=== PATIENT | female | born 1975 | race Hispanic/Latino ===

== ENCOUNTER → 2023-04-28 07:08 | Outpatient (REF) | payer OTHER, SELFPAY | LOC: MRI 07:08 | PROVIDERS: ATTENDING PHYSICIAN Physical Medicine & Rehabilitation; FAMILY PHYSICIAN Internal Medicine | DX: R51.9 Headache, unspecified (principal) | CPT/HCPCS: 70551 ==

== ENCOUNTER 2023-11-09 10:23 | Outpatient (RCR) | payer OTHER, SELFPAY ==
[2023-11-09 10:38] VITALS: BP 120/88
[2023-11-09] MEDS: VENOFER 110 MG IV (10:47)
[2023-11-09 11:58] VITALS: BP 113/71
== END 2023-11-09 23:59 | disposition home or self-care (01) ==
LOC: OID 10:23
PROVIDERS: ATTENDING PHYSICIAN Psychiatry & Neurology Neurology; FAMILY PHYSICIAN Internal Medicine
DX: R79.0 Abnormal level of blood mineral (principal); G44.52 New daily persistent headache (NDPH); G44.221 Chronic tension-type headache, intractable
CPT/HCPCS: 96365; J1756

== ENCOUNTER 2023-11-16 10:05 | Outpatient (RCR) | payer OTHER, SELFPAY ==
[2023-11-16 10:22] VITALS: BP 111/64
[2023-11-16] MEDS: VENOFER 110 MG IV (10:31)
[2023-11-16 11:37] VITALS: BP 98/67
== END 2023-12-10 23:59 | disposition home or self-care (01) ==
LOC: OID 10:05
PROVIDERS: ATTENDING PHYSICIAN Internal Medicine
DX: R79.0 Abnormal level of blood mineral (principal); G44.52 New daily persistent headache (NDPH)
CPT/HCPCS: 96365; J1756

== ENCOUNTER 2024-01-11 10:34 | Emergency (ER) | payer OTHER, SELFPAY ==
[2024-01-11 11:01] VITALS: BP 122/88
--- NOTE | 2024-01-11 11:27 | ED.GENMED ---
History of Present Illness
General
Chief Complaint: Abdominal Symptoms
Source: patient and spouse
Exam Limitations: none
Time Seen by Provider: 01/11/24 11:18
Nursing documentation reviewed up to this point in time: agreed with
History of Present Illness
History of Present Illness:
48-year-old female with no clinically significant past medical history presents with nausea and diarrhea sudden onset at 2 AM. She states her stools are liquid anytime she drinks anything it goes right through her and she has liquid nonbloody
stools, she has had a lot of burping and flatus. had similar symptoms starting at 5 PM yesterday about 40 minutes after they both ate leftover turkey. He is completely better.
Patient denies fever or chills. She denies any significant abdominal pain. She is nauseous but has not vomited.
Past History
Past History
ED Past Medical History: Other (Takes amitriptyline for interstitial cystitis.) and Other (Migraines with monthly injection of Emgality)
ED Past Surgical History: and Other (Breast augmentation, bladder ablation)
Social History
Tobacco: Non-smoker
Alcohol: None
Personal:
Living: with family
Employment: Not employed
Review of Systems
Review of Systems
Allergies reviewed?: Yes
All Other Systems: ROS reviewed and negative except as documented in HPI and ROS
Constitutional: Denies fever or chills
Respiratory: Denies trouble breathing
Cardiac: Denies chest pain
ABD/GI: Reports nausea, vomiting and diarrhea; Denies abdominal pain, bloody stools or black stools
: Denies dysuria or difficulty voiding
Musculoskeletal: Reports no symptoms
Phy Exam
Physical Exam
Physical Exam:
GENERAL: No acute distress. A&Ox3.
CONSTITUTIONAL: Afebrile.
EYES: clear, conjunctivae normal
ENMT: moist mucus membranes, Pharynx nl
RESPIRATORY: Regular respirations, nonlabored, lungs clear.
CARDIOVASCULAR: Regular rate and rhythm, no murmurs, no rubs.
GI: Soft, nontender, normal BS
MUSCULOSKELETAL: Moves with ease. Well perfused.
SKIN: Warm, dry, pink
PSYCH: Normal mood and affect. Well kept, interactive and appropriate
NEUROLOGIC: Awake, alert and oriented. No focal neurological deficits
Course
Orders/Labs/Results
Orders:
Orders
01/11/24 11:26
0.9% Sodium Chloride 1000 ml [Nss] 1,000 ml IV BOLUS
01/11/24 11:27
Ondansetron Injectable [Zofran] 4 mg IV NOW STA
01/11/24 11:36
Complete Blood Count/With Diff Urgent
Comprehensive Metabolic Panel Urgent
Lipase Urgent
01/11/24 11:39
Dicyclomine [Bentyl] 10 mg PO NOW STA
01/11/24 11:40
STOOL [C difficile Antigen & Toxins] Urgent
BLANCA Source: Feces/Stool
Specimen Description:
Date Specimen was Collected: 01/11/24
Time Specimen was Collected: 11:38
Stool Culture Urgent
BLANCA Source: Feces/Stool
Specimen Description:
Date Specimen was Collected: 01/11/24
Time Specimen was Collected: 11:38
01/11/24 12:42
Loperamide [Imodium] 2 mg PO NOW STA
Abnormal Lab Results
01/11/24
11:36
Neutrophils % 78.5 H %
(42.2-75.2)
Lymphocytes % 17.1 L %
(20.5-51.1)
BUN 22 H mg/dl
(7-17)
01/11/24 11:36
01/11/24 11:36
Vital Signs
Initial and Last Documented VS:
Initial Vital Signs
Temp Pulse Resp BP Pulse Ox
98.4 F 100 16 122/88 99
01/11/24 11:01 01/11/24 11:01 01/11/24 11:01 01/11/24 11:01 01/11/24 11:01
Last Documented Vital Signs
Temp Pulse Resp BP Pulse Ox
98.4 F 86 16 101/65 100
01/11/24 11:01 01/11/24 12:51 01/11/24 12:51 01/11/24 12:51 01/11/24 12:51
MDM/Problems Addressed
Differential Diagnosis Includes:
Food poisoning, gastroenteritis
MDM/Problems Addressed:
48-year-old female with no clinically significant past medical history presents with nausea and diarrhea sudden onset at 2 AM. She states her stools are liquid anytime she drinks anything it goes right through her and she has liquid nonbloody
stools, she has had a lot of burping and flatus. had similar symptoms starting at 5 PM yesterday about 40 minutes after they both ate leftover turkey. He is completely better.
Patient denies fever or chills. She denies any significant abdominal pain. She is nauseous but has not vomited.
Afebrile, NAD
Has had 2 episodes of watery diarrhea since arrival
Abdomen benign
Stool for C. difficile is negative
CBC, CMP normal
Patient given a dose of Imodium, Zofran and Bentyl here.
Prescription for Zofran sent to her pharmacy
Pt ambulated out with normal gait
*Critical Care Note
Total Time (30-74mins, 75-104mins- exclusive of procedures): Not Applicable
ED Attending Note
-
Portions of this chart may have been created with voice recognition software.� Occasional wrong word or��sound alike� substitutions may have occurred due to the inherent limitations of voice recognition software.
Discharge Plan
Departure
Patient Disposition: Home (Routine Discharge)
Date of Disposition: 01/11/24
Time of Disposition: 12:48
Patient with high blood pressure during this ER visit?: No
Condition: Fair
Discharge Problem:
Gastroenteritis
Instructions: Food poisoning, Diarrhea in teens and adults, Nausea and Vomiting, Adult (DC)
Prescriptions:
New
ondansetron HCl 4 mg tablet
4 mg PO Q8H PRN (Reason: nausea and vomiting) 5 Days Qty: 15 0RF
No Action
hydroxyzine HCl 50 mg Tablet
50 mg PO BID PRN (Reason: cystitis)
amitriptyline 10 mg Tablet
10 mg PO DAILY
galcanezumab-gnlm 120 mg/mL Pen Injector
120 mg SC QMONTH
Nurtec ODT 75 mg Tablet,Disintegrating
75 mg PO ONCE PRN (Reason: headache)
Referrals:
David Gordon MD [Family Provider] - As needed
Activity Restrictions/Additional Instructions:
As we discussed, you have gastroenteritis most likely from eating the leftover turkey since her had the same symptoms.
You may take Imodium as directed on the label for the diarrhea
I sent a prescription to your pharmacy for Zofran to use as needed for nausea
Your blood work is normal save for showing some mild dehydration so when you feel better and you can stomach it, drink plenty of fluids.
See your doctor in 5 to 7 days if not 100% better by then
Return here immediately for fever above 100.5 not relieved with Tylenol or ibuprofen, repeated vomiting despite the Zofran, bloody diarrhea worsening abdominal pain or feeling sicker in any way.
Interventions
Interventions:
*Risk Screen - Suicide Last Done: 01/11/24 11:48
*General Assessment Last Done: 01/11/24 11:48
*Neglect/Abuse Screening Last Done: 01/11/24 11:48
ED- Fall Risk Assessment Last Done: 01/11/24 11:48
*Nursing Disposition Last Done: 01/11/24 12:59
EF-Cmmqfl-Kxfgcebddu Assessment Last Done: 01/11/24 11:48
Discharge Date and Time
Discharge Date/Time: 01/11/24 12:59
Print Language: POLISH
[2024-01-11] MEDS: ZOFRAN 4 MG IV (11:36)
[2024-01-11] MEDS: NSS 1000 IV (11:36)
[2024-01-11] MEDS: BENTYL 10 MG PO (11:45)
[2024-01-11 11:48] LABS: % Basophils 0.3 % (0-2); % Eosinophils 0.6 % (0-6); % Immature Granulocytes 0.3 % (0-0.5); % Lymphocytes 17.1 % (20.5-51.1); % Monocytes 3.2 % (1.7-9.3); % Neutrophils 78.5 % (42.2-75.2); Absolute Lymphocytes 1.2 10^3/uL (1.2-3.4); Absolute Monocytes 0.2 10^3/uL (0.1-0.6); Absolute Neutrophils 5.7 10^3/uL (1.4-6.5); Hematocrit 40.9 % (37.0-47.0); Hemoglobin 13.9 g/dL (12.0-16.0); Mean Corpuscular Volume 88.3 fL (81.0-99.0); Mean Platelet Volume 9.3 fL (7.4-10.4); Nucleated Red Blood Cells % 0 %; Platelet Count 252 10^3/uL (130-400); Red Blood Cell Count 4.63 10^6/uL (4.20-5.40); Red Cell Dist. Width 12.6 % (11.5-14.5); White Blood Cell Count 7.3 10^3/uL (4.8-10.8)
[2024-01-11 12:12] LABS: ALT (SGPT) 19 U/L (0-35); AST (SGOT) 26 U/L (14-36); Alkaline Phosphatase 56 U/L (38-126); Blood Urea Nitrogen 22 mg/dl (7-17); Carbon Dioxide 27 mmol/L (22-30); Chloride 102 mmol/L (98-107); Glucose 91 mg/dl (70-99); Lipase 115 U/L (23-300); Potassium 3.7 mmol/L (3.5-5.1); Sodium 141 mmol/L (135-145); Total Bilirubin 0.6 mg/dl (0.2-1.3); Total Protein 8.1 g/dl (6.3-8.2); eGFR > 60.00
[2024-01-11] MEDS: IMODIUM 2 MG PO (12:49)
[2024-01-11 12:51] VITALS: BP 101/65
== END 2024-01-11 12:59 | disposition home or self-care (01) ==
LOC: EMR 10:34
PROVIDERS: Registered Nurse; EMERGENCY PHYSICIAN Emergency Medicine; FAMILY PHYSICIAN Internal Medicine
DX: K52.9 Noninfective gastroenteritis and colitis, unspecified (principal); R42 Dizziness and giddiness; G43.909 Migraine, unspecified, not intractable, without status migrainosus; D50.9 Iron deficiency anemia, unspecified; F32.A Depression, unspecified
CPT/HCPCS: 99284; 96374; 80053; 83690; 85025; 87045; 87046; 87324; 87427; 87449

== ENCOUNTER 2024-01-11 23:46 | Emergency (ER) | payer OTHER, SELFPAY ==
[2024-01-11 23:49] VITALS: BP 122/84
[2024-01-12 01:15] LABS: % Basophils 0.3 % (0-2); % Eosinophils 1.2 % (0-6); % Immature Granulocytes 0.2 % (0-0.5); % Lymphocytes 13.3 % (20.5-51.1); % Monocytes 3.6 % (1.7-9.3); % Neutrophils 81.4 % (42.2-75.2); Absolute Eosinophils 0.1 10^3/uL (0-0.7); Absolute Lymphocytes 1.2 10^3/uL (1.2-3.4); Absolute Monocytes 0.3 10^3/uL (0.1-0.6); Absolute Neutrophils 7.6 10^3/uL (1.4-6.5); Hematocrit 38.3 % (37.0-47.0); Hemoglobin 13.6 g/dL (12.0-16.0); Mean Corp Hgb Conc. 35.5 g/dL (33.0-37.0); Mean Corpuscular Hgb 30.9 pg (27.0-31.0); Mean Platelet Volume 9.6 fL (7.4-10.4); Nucleated Red Blood Cells % 0 %; Platelet Count 236 10^3/uL (130-400); Red Cell Dist. Width 12.4 % (11.5-14.5); White Blood Cell Count 9.3 10^3/uL (4.8-10.8)
[2024-01-12 01:22] LABS: ALT (SGPT) 18 U/L (0-35); AST (SGOT) 25 U/L (14-36); Albumin 4.5 g/dl (3.5-5.0); Alkaline Phosphatase 47 U/L (38-126); Blood Urea Nitrogen 22 mg/dl (7-17); Calcium 9.5 mg/dl (8.4-10.2); Carbon Dioxide 27 mmol/L (22-30); Chloride 105 mmol/L (98-107); Glucose 91 mg/dl (70-99); Potassium 3.6 mmol/L (3.5-5.1); Sodium 144 mmol/L (135-145); Total Bilirubin 0.6 mg/dl (0.2-1.3); Total Protein 7.2 g/dl (6.3-8.2); eGFR > 60.00
[2024-01-12 01:42] VITALS: BMI 25.5
[2024-01-12 01:44] VITALS: BP 111/81
--- NOTE | 2024-01-12 02:24 | ED.GENMED ---
History of Present Illness
<BELLA Ray - Last Filed: 01/12/24 02:50>
General
Chief Complaint: Abdominal Symptoms
Source: patient and significant other
Exam Limitations: none
Time Seen by Provider: 01/12/24 02:23
Nursing documentation reviewed up to this point in time: agreed with
History of Present Illness
History of Present Illness:
Pt is a 48 y/o F with PMH of 2 c-sections, bladder ablation, cystitis, and iron deficiency anemia who presents to the ED for nausea, diarrhea and fatigue x 1 day. She was seen in the ED earlier yesterday for the same complaints where she was
prescribed Imodium and zofran for a dx of gastroenteritis. She admitted that she ate leftover turkey from [employer] and developed symptoms afterwards. Her also developed the same symptoms. She admits that since leaving she still has some
nausea and non-bloody diarrhea, despite taking the prescribed medications and she feels generally worse. She is able to keep down fluids and food and has been sipping water and eating chips with associated burping and flatus. She admits her last
episode of diarrhea was around 23:00pm. She states she abdominal pain that is diffuse and mild without radiation. She denies fever, SAUL, vomiting, constipation, dizziness, changes in vision, chest pain, cough, back pain.
Past History
<BELLA Ray - Last Filed: 01/12/24 02:50>
Past History
ED Past Medical History: Other (Takes amitriptyline for interstitial cystitis.) and Other (Migraines with monthly injection of Emgality)
ED Past Surgical History: and Other (Breast augmentation, bladder ablation)
Social History
Tobacco: Non-smoker
Alcohol: None
Personal:
Living: with family
Employment: Not employed
Review of Systems
<BELLA Ray - Last Filed: 01/12/24 02:50>
Review of Systems
Allergies reviewed?: Yes
Other source history: family
Constitutional: Reports fatigue; Denies fever or chills
Respiratory: Reports no symptoms
Cardiac: Reports no symptoms
ABD/GI: Reports abdominal pain (mild, diffuse discomfort), nausea, vomiting and diarrhea (last episode at 23:00pm on 01/10); Denies bloody stools
: Reports no symptoms
Skin: Reports no symptoms
Phy Exam
<BELLA Ray - Last Filed: 01/12/24 02:50>
General Physical Exam
General Presentation: well appearing and no apparent distress
General age: appears stated age
General Skin: warm and dry
General Habitus: normal
General Mental: alert
General Hydration: appears well hydrated
Cardiovascular Exam
Cardiovascular Exam: regular rate/rhythm and no murmur
Pulmonary Exam
Pulmonary Exam: lungs clear and no respiratory distress
Gastrointestinal Exam
Gastrointestinal Exam: normal bowel sounds, non tender, soft and no cva tenderness
Course
<BELLA Ray - Last Filed: 01/12/24 02:50>
Orders/Labs/Results
Orders:
Orders
01/11/24 23:59
CMP [Comprehensive Metabolic Panel] Urgent
Complete Blood Count/With Diff Urgent
01/12/24 02:44
Orthostatic VS- Treatment ONCE
01/12/24 03:31
Mag Hydrox/Al Hydrox/Simeth [Maalox] 30 ml PO NOW STA
Ondansetron Orally Disint [Zofran Odt (Orally Disintegrating)] 4 mg PO NOW STA
01/12/24 04:26
0.9% Sodium Chloride 1000 ml [Nss] 1,000 ml IV BOLUS
Diphenhydramine [Benadryl] 25 mg IV NOW STA
Pantoprazole [Protonix IV] 40 mg IV NOW STA
Prochlorperazine [Compazine] 10 mg IV NOW STA
Abnormal Lab Results
01/12/24
00:55
Absolute Neuts (auto) 7.6 H 10^3/uL
(1.4-6.5)
Neutrophils % 81.4 H %
(42.2-75.2)
Lymphocytes % 13.3 L %
(20.5-51.1)
BUN 22 H mg/dl
(7-17)
01/12/24 00:55
01/12/24 00:55
Vital Signs
Initial and Last Documented VS:
Initial Vital Signs
Temp Pulse Resp BP Pulse Ox
97.8 F 90 24 122/84 100
01/11/24 23:49 01/11/24 23:49 01/11/24 23:49 01/11/24 23:49 01/11/24 23:49
Last Documented Vital Signs
Temp Pulse Resp BP Pulse Ox
97.8 F 72 16 96/65 98
01/11/24 23:49 01/12/24 05:48 01/12/24 05:48 01/12/24 05:48 01/12/24 05:48
<Chiara Rodriguez, DO - Last Filed: 01/12/24 06:56>
Orders/Labs/Results
Orders:
Orders
01/11/24 23:59
CMP [Comprehensive Metabolic Panel] Urgent
Complete Blood Count/With Diff Urgent
01/12/24 02:44
Orthostatic VS- Treatment ONCE
01/12/24 03:31
Mag Hydrox/Al Hydrox/Simeth [Maalox] 30 ml PO NOW STA
Ondansetron Orally Disint [Zofran Odt (Orally Disintegrating)] 4 mg PO NOW STA
01/12/24 04:26
0.9% Sodium Chloride 1000 ml [Nss] 1,000 ml IV BOLUS
Diphenhydramine [Benadryl] 25 mg IV NOW STA
Pantoprazole [Protonix IV] 40 mg IV NOW STA
Prochlorperazine [Compazine] 10 mg IV NOW STA
Abnormal Lab Results
01/12/24
00:55
Absolute Neuts (auto) 7.6 H 10^3/uL
(1.4-6.5)
Neutrophils % 81.4 H %
(42.2-75.2)
Lymphocytes % 13.3 L %
(20.5-51.1)
BUN 22 H mg/dl
(7-17)
01/12/24 00:55
01/12/24 00:55
Vital Signs
Initial and Last Documented VS:
Initial Vital Signs
Temp Pulse Resp BP Pulse Ox
97.8 F 90 24 122/84 100
01/11/24 23:49 01/11/24 23:49 01/11/24 23:49 01/11/24 23:49 01/11/24 23:49
Last Documented Vital Signs
Temp Pulse Resp BP Pulse Ox
97.8 F 72 16 96/65 98
01/11/24 23:49 01/12/24 05:48 01/12/24 05:48 01/12/24 05:48 01/12/24 05:48
<BELLA Ray - Last Filed: 01/12/24 02:50>
MDM/Problems Addressed
Differential Diagnosis Includes:
gastroenteritis, dehydration
<BELLA Ray - Last Filed: 01/12/24 02:50>
*Critical Care Note
Total Time (30-74mins, 75-104mins- exclusive of procedures): Not Applicable
<Chiara Rodriguez DO - Last Filed: 01/12/24 06:56>
*Pulse Oximetry
Patient hypoxic: no
ED Attending Note
<BELLA Ray - Last Filed: 01/12/24 02:50>
-
Portions of this chart may have been created with voice recognition software.� Occasional wrong word or��sound alike� substitutions may have occurred due to the inherent limitations of voice recognition software.
<Chiara Rodriguez DO - Last Filed: 01/12/24 06:56>
ED Attending Note
Patient seen and examined by attending physician: Yes
I performed the substantive portion of visit, reviewed & personally made and approve the management plan that is documented in note by myself or ANAI.: Yes
ED Attending Note:
This is a 48-year-old woman with no significant past medical history who presented to this ED earlier this morning with complaints of nausea and diarrhea that began 2:00 in the morning January 10. Her had very similar GI symptoms.
Labs were unremarkable. She was feeling improved after IV fluids and IV Zofran. Was given an oral dose of Imodium. Discharged to home with prescription for Zofran for which she took a dose this evening but continues with ongoing nausea,
intermittent dry heaves. She admits that diarrhea has markedly improved with last loose stool at 11 PM. She does continue with some crampy abdominal discomfort but continues to have no fever. Complains of generalized weakness but no falls nor
syncope. She denies hematemesis nor hematochezia. She complains of substernal chest discomfort, burning in nature, worse with burping.
She has been tolerating sips of water.
GENERAL: 48-year-old woman appears her stated age, awake and alert, appears in moderate distress, intermittently moaning. is accompanying. Vital signs within normal limits.
EYE: anicteric
NECK: Supple, nontender, no meningismus, no significant adenopathy.
ENT: oral mucosa is moist. No rhinorrhea.
CARDIAC: Regular rate and rhythm. no murmur.
LUNGS: Clear breath sounds bilaterally, no acute respiratory distress, no wheezes/rales/rhonchi
ABDOMEN: Soft, nondistended, minimal tenderness epigastric region with deep palpation only, no r/g, no cvat. normoactive BS.
NEUROLOGICAL: Alert and oriented x3, no focal neuro deficits.
SKIN: Warm and dry, normal color, skin intact. No rash.
MUSCULOSKELETAL: No C/C/E. peripheral pulses are full and equal b/l. No palpable tenderness.
PSYCH: Mildly anxious. Cooperative.
Patient returns with continued nausea, tolerating small sips of clear liquids.
Repeat labs again are unremarkable. Minimally elevated BUN with similar to previous. No acidosis. Electrolytes are normal. LFTs are normal.
Will check orthostatic vital signs.
If unremarkable will trial Zofran ODT and a dose of Mylanta for what I suspect is GERD.
With reassuring labs, essentially unremarkable abdominal exam, at this point no indication for imaging.
Will attempt to continue oral rehydration. If not tolerated or if orthostatics are positive will initiate IV fluids.
01/12/2024 0650 AM
Patient did not tolerate oral Zofran and Maalox. She had return/worsening of nausea along with dry heaves.
IV fluids initiated and she was given IV dose of Compazine, Protonix, Benadryl with marked improvement. No further nausea nor dry heaves.
Now tolerating sips of clear liquids. She does continue with intermittent burping but tolerating clear liquids, no abdominal pain and has had no diarrhea since arrival to the ED.
She remains afebrile. Hemodynamically stable.
At this point no indication for hospitalization.
Recommend she limit her diet to just clear liquids today, slowly advance tomorrow to soft bland foods as tolerated.
As she has done well with Compazine, I have written a prescription for Compazine tablets to be taken 4 times daily as needed for nausea.
Prompt follow-up with PCP.
Return precautions discussed.
Discharge Plan
Departure
Patient Disposition: Home (Routine Discharge)
Date of Disposition: 01/12/24
Time of Disposition: 06:52
Patient with high blood pressure during this ER visit?: No
Condition: Good
Discharge Problem:
Acute gastroenteritis
Instructions: Viral gastroenteritis in adults, Clear Liquid Diet
Prescriptions:
New
prochlorperazine maleate [Compazine] 10 mg tablet
10 mg PO QID PRN (Reason: nausea and vomiting) Qty: 10 0RF
No Action
hydroxyzine HCl 50 mg Tablet
50 mg PO BID PRN (Reason: cystitis)
amitriptyline 10 mg Tablet
10 mg PO DAILY
galcanezumab-gnlm 120 mg/mL Pen Injector
120 mg SC QMONTH
Nurtec ODT 75 mg Tablet,Disintegrating
75 mg PO ONCE PRN (Reason: headache)
ondansetron HCl 4 mg tablet
4 mg PO Q8H PRN (Reason: nausea and vomiting) 5 Days Qty: 15 0RF
Referrals:
David Gordon MD [Family Provider] - Call in 1-3 days for appt
Interventions
Interventions:
*Risk Screen - Suicide Last Done: 01/11/24 23:49
*General Assessment Last Done: 01/12/24 01:44
*Neglect/Abuse Screening Last Done: 01/11/24 23:49
*ED COVID-19 Vaccine History Last Done: 01/12/24 01:43
LN-Wwgrnc-Grfftfsbik Assessment Last Done: 01/12/24 01:46
ED- Cardiac Assessment Last Done: 01/12/24 01:46
ED- Neurological Assessment Last Done: 01/12/24 01:46
ED- Pulmonary Assessment Last Done: 01/12/24 01:46
Discharge Date and Time
Print Language: IRISH
[2024-01-12 03:14] VITALS: BP 103/73; BP 105/75; BP 99/74; PULSE 78; PULSE 82; PULSE 92
[2024-01-12] MEDS: ZOFRAN ODT (ORALLY DISINTEGRATING) 4 MG PO ×2 (04:03→07:47)
[2024-01-12] MEDS: MAALOX 30 ML PO (04:17)
[2024-01-12] MEDS: BENADRYL 25 MG IV (04:37)
[2024-01-12] MEDS: NSS 1000 IV (04:37)
[2024-01-12] MEDS: COMPAZINE 10 MG IV (04:38)
[2024-01-12] MEDS: PROTONIX IV 40 MG IV (04:38)
[2024-01-12 05:45] VITALS: BP 96/65
[2024-01-12 05:48] VITALS: BP 96/65
[2024-01-12 08:03] VITALS: BP 98/66
== END 2024-01-12 07:55 | disposition home or self-care (01) ==
LOC: EMR 23:46
PROVIDERS: EMERGENCY PHYSICIAN Emergency Medicine; FAMILY PHYSICIAN Internal Medicine
DX: K52.9 Noninfective gastroenteritis and colitis, unspecified (principal); R53.1 Weakness; R53.83 Other fatigue; R11.0 Nausea; D50.9 Iron deficiency anemia, unspecified; G43.909 Migraine, unspecified, not intractable, without status migrainosus; F32.A Depression, unspecified
CPT/HCPCS: 99284; 96374; 96375 ×2; 96361; 80053; 85025

== ENCOUNTER 2024-02-06 05:36 | Emergency (ER) | payer OTHER, SELFPAY ==
[2024-02-06 05:56] LABS: % Basophils 0.2 % (0-2); % Eosinophils 1.2 % (0-6); % Immature Granulocytes 0.3 % (0-0.5); % Lymphocytes 17.6 % (20.5-51.1); % Monocytes 3.6 % (1.7-9.3); % Neutrophils 77.1 % (42.2-75.2); Absolute Eosinophils 0.1 10^3/uL (0-0.7); Absolute Lymphocytes 1.6 10^3/uL (1.2-3.4); Absolute Monocytes 0.3 10^3/uL (0.1-0.6); Absolute Neutrophils 6.9 10^3/uL (1.4-6.5); Hematocrit 41.1 % (37.0-47.0); Hemoglobin 14.6 g/dL (12.0-16.0); Mean Corp Hgb Conc. 35.5 g/dL (33.0-37.0); Mean Corpuscular Hgb 30.5 pg (27.0-31.0); Mean Platelet Volume 9.2 fL (7.4-10.4); Nucleated Red Blood Cells % 0 %; Platelet Count 301 10^3/uL (130-400); Red Blood Cell Count 4.78 10^6/uL (4.20-5.40); Red Cell Dist. Width 12.5 % (11.5-14.5); White Blood Cell Count 8.9 10^3/uL (4.8-10.8)
[2024-02-06 06:13] LABS: HCG, Serum Qualitative Screen Negative
[2024-02-06 06:14] LABS: ALT (SGPT) 18 U/L (0-35); AST (SGOT) 23 U/L (14-36); Albumin 5.1 g/dl (3.5-5.0); Alkaline Phosphatase 81 U/L (38-126); Blood Urea Nitrogen 24 mg/dl (7-17); Calcium 9.8 mg/dl (8.4-10.2); Carbon Dioxide 21 mmol/L (22-30); Chloride 103 mmol/L (98-107); Glucose 127 mg/dl (70-99); Lipase 152 U/L (23-300); Potassium 3.8 mmol/L (3.5-5.1); Sodium 139 mmol/L (135-145); Total Bilirubin 0.6 mg/dl (0.2-1.3); Total Protein 8.4 g/dl (6.3-8.2); eGFR > 60.00
[2024-02-06] MEDS: NSS 1000 IV (09:36)
[2024-02-06] MEDS: BENTYL 20 MG IM (09:36)
[2024-02-06] MEDS: ZOFRAN 4 MG IV (09:36)
--- NOTE | 2024-02-06 09:47 | ED.GENMED ---
History of Present Illness
General
Chief Complaint: Abdominal Symptoms
Source: patient
Exam Limitations: none
Time Seen by Provider: 02/06/24 09:08
Nursing documentation reviewed up to this point in time: agreed with
History of Present Illness
History of Present Illness:
48 y/o F with h/o IBS but not on meds
has had colonoscopy previously with just polyps
here with abd pain, n/v x 4 and diarrhea x 5 watery
she has generalized abd pain
no fever/chills
due to fly tomorrow to [place] for vacation
pt had similar episode 3 weeks ago and was here 2 times for n/v/d
at that time was hydrated, given zofran and d/c home, no imaging
her stool was checked and neg
her ppc saw her and ended up giving her a few days of cipro and her symptoms resolved until yesteray
she has not had any blood in her stool
Past History
Past History
ED Past Medical History: Other (Takes amitriptyline for interstitial cystitis.) and Other (Migraines with monthly injection of Emgality)
ED Past Surgical History: and Other (Breast augmentation, bladder ablation)
Social History
Tobacco: Non-smoker
Alcohol: None
Personal:
Living: with family
Employment: Not employed
Review of Systems
Review of Systems
Allergies reviewed?: Yes
All Other Systems: Not applicable
Phy Exam
Physical Exam
Physical Exam:
GENERAL: Alert , in no apparent distress
EYE: pupils equal and reactive
NECK: Supple
ENT: o/p clr, mmm.
CARDIAC: Regular rate and rhythm .
LUNGS: Clear breath sounds bilaterally, no acute respiratory distress, no wheezes/rales/rhonchi
ABDOMEN: Soft, mild generalized tenderness, no r/g, no cvat, normal bowel sounds
NEUROLOGICAL: Alert and oriented, no focal neuro deficits
SKIN: Warm and dry, skin intact.
MUSCULOSKELETAL: No edema, well perfused. neg sanjay's sign
PSYCH: Normal and appropriate interaction.
Course
Orders/Labs/Results
Orders:
Orders
02/06/24 05:42
Test Result ONCE
02/06/24 05:48
Complete Blood Count/With Diff Urgent
Comprehensive Metabolic Panel Urgent
HCG, Serum Qualitative Screen Urgent
Comment: Notify provider if positive test present
Lipase Urgent
02/06/24 09:23
0.9% Sodium Chloride 1000 ml [Nss] 1,000 ml IV BOLUS
Dicyclomine HCl [Bentyl] 20 mg IM NOW STA
Ondansetron Injectable [Zofran] 4 mg IV NOW STA
02/06/24 09:46
CT Abd/pel W Iv And Oral Contr Urgent
Comment:
Reason For Exam: abd pain, vomiting, diarrhea; same as 3 weeks ago
Iohexol [Omnipaque] See Protocol PO NOW STA
02/06/24 10:21
STOOL [C difficile Antigen & Toxins] Urgent
BLANCA Source: Feces/Stool
Specimen Description:
Date Specimen was Collected: 02/06/24
Time Specimen was Collected: 10:17
Stool Culture Urgent
BLANCA Source: Feces/Stool
Specimen Description:
Date Specimen was Collected: 02/06/24
Time Specimen was Collected: 10:17
Abnormal Lab Results
02/06/24
05:48
Absolute Neuts (auto) 6.9 H 10^3/uL
(1.4-6.5)
Neutrophils % 77.1 H %
(42.2-75.2)
Lymphocytes % 17.6 L %
(20.5-51.1)
Carbon Dioxide 21 L mmol/L
(22-30)
BUN 24 H mg/dl
(7-17)
Glucose 127 H mg/dl
(70-99)
Total Protein 8.4 H g/dl
(6.3-8.2)
Albumin 5.1 H g/dl
(3.5-5.0)
02/06/24 05:48
02/06/24 05:48
Vital Signs
Initial and Last Documented VS:
Initial Vital Signs
Temp Pulse Resp BP Pulse Ox
36.3 C 106 16 113/78 100
02/06/24 05:37 02/06/24 05:37 02/06/24 05:37 02/06/24 05:37 02/06/24 05:37
Last Documented Vital Signs
Temp Pulse Resp BP Pulse Ox
36.3 C 106 16 98/61 98
02/06/24 05:37 02/06/24 05:37 02/06/24 05:37 02/06/24 14:00 02/06/24 14:00
MDM/Problems Addressed
Differential Diagnosis Includes:
viral gastroenteritis, colitis, infectious diarrhea
MDM/Problems Addressed:
48 y/o F vomiting/diarrhea
predominantly diarrhea since te
recently had the same 3 weeks ago and wa here
treated by her PCP for a few days of abx
has h/o IBS but dosen't think it is IBS
traveling tomorrow
diffuse abd pain
looks well
nontoxic
no focal tendenress but mild disocmfort on exam
given 2nd occurrence opted for imaging of her abdomen
stool c diff neg
wbc normal
mild dehydration
ct neg
ptahd 3 episodes here
will encourage brat diet, imodium
and if necessary while on vacation, levaquin 3 days
*Critical Care Note
Total Time (30-74mins, 75-104mins- exclusive of procedures): Not Applicable
ED Attending Note
-
Portions of this chart may have been created with voice recognition software.� Occasional wrong word or��sound alike� substitutions may have occurred due to the inherent limitations of voice recognition software.
Discharge Plan
Departure
Patient Disposition: Home (Routine Discharge)
Patient with high blood pressure during this ER visit?: No
Condition: Fair
Discharge Problem:
Gastroenteritis
Instructions: Viral gastroenteritis in adults
Prescriptions:
New
dicyclomine 20 mg tablet
20 mg PO TID PRN (Reason: abdominal pain) Qty: 12 0RF
levofloxacin 500 mg tablet
500 mg PO DAILY Qty: 3 0RF
No Action
hydroxyzine HCl 50 mg Tablet
50 mg PO BID PRN (Reason: cystitis)
amitriptyline 10 mg Tablet
10 mg PO DAILY
galcanezumab-gnlm 120 mg/mL Pen Injector
120 mg SC QMONTH
Nurtec ODT 75 mg Tablet,Disintegrating
75 mg PO ONCE PRN (Reason: headache)
ondansetron HCl 4 mg tablet
4 mg PO Q8H PRN (Reason: nausea and vomiting) 5 Days Qty: 15 0RF
prochlorperazine maleate [Compazine] 10 mg tablet
10 mg PO QID PRN (Reason: nausea and vomiting) Qty: 10 0RF
Referrals:
David Gordon MD [Family Provider] -
Activity Restrictions/Additional Instructions:
YOUR SYMPTOMS ARE PROBABLY VIRAL
TRY THE BRAT DIET (BANANAS, RICE, APPLESAUCE, TOAST)
IF YOU REALLY NEED TO YOU CAN TRY IMODIUM NEEDED BUT BE CAREFUL THIS CAN MAKE YOU CONSTIPATED.
IF YOU ARE STILL HAVING DIARRHEA IN 2-3 DAYS YOU CAN TRY 3 DAYS OF LEVAQUIN (ONCE A DAY FOR 3 DAYS)
BUT ANTIBIOTICS CAN MAKE DIARRHEA WORSE SOMETIMES SO SEE HOW THE IMODIUM DOES
CLL YOUR GI WHEN YOU COME HOME AND GET RECHECKED
RETURN FO RANY CONCERNS.
BENTYL 20 MG 2-3 TIMES A DAY A S NEEDED FOR PAIN
Interventions
Interventions:
*Risk Screen - Suicide Last Done: 02/06/24 05:37
*General Assessment Last Done: 02/06/24 05:37
*Neglect/Abuse Screening Last Done: 02/06/24 05:37
ED- Fall Risk Assessment Last Done: 02/06/24 09:24
*ED COVID-19 Vaccine History Last Done: 02/06/24 09:24
*Nursing Disposition Last Done: 02/06/24 14:18
BO-Aheuha-Rtzfdsuqoe Assessment Last Done: 02/06/24 09:25
Discharge Date and Time
Discharge Date/Time: 02/06/24 14:23
Print Language: MAURITIAN
[2024-02-06] MEDS: OMNIPAQUE 50 ML PO (10:00)
== END 2024-02-06 14:23 | disposition home or self-care (01) ==
LOC: EMR 05:36
PROVIDERS: Student in an Organized Health Care Education/Training Program; EMERGENCY PHYSICIAN Emergency Medicine; FAMILY PHYSICIAN Internal Medicine
DX: K52.9 Noninfective gastroenteritis and colitis, unspecified (principal); E86.0 Dehydration; K58.9 Irritable bowel syndrome, unspecified
CPT/HCPCS: 99284; 96374; 96372; 96361; 74177; 80053; 83690; 84703; 85025; 87045; 87046; 87324; 87427; 87449; Q9967

== ENCOUNTER → 2024-06-06 10:31 | Outpatient (REF) | payer OTHER, SELFPAY | LOC: RAD 10:31 | PROVIDERS: ATTENDING PHYSICIAN Nurse Practitioner Adult Health; FAMILY PHYSICIAN Internal Medicine | DX: R10.2 Pelvic and perineal pain (principal) | CPT/HCPCS: 76830; 76856 ==

== ENCOUNTER 2024-06-10 08:04 | Emergency (ER) | payer OTHER, SELFPAY ==
[2024-06-10 08:11] VITALS: BP 120/79
[2024-06-10 08:35] LABS: Urine Albumin 1+ (Neg - Trace); Urine Bilirubin Negative (Negative); Urine Character Clear (Clear); Urine Color Yellow; Urine Glucose Negative (Negative); Urine Ketone Negative (Negative); Urine Leukocyte Negative (Negative); Urine Nitrite Negative (Negative); Urine Occult Blood 3+ (Negative); Urine Urobilinogen Negative (Neg - 1+)
[2024-06-10 08:51] LABS: Urine Mucus Many
[2024-06-10 08:52] LABS: Urine Bacteria Few (Negative); Urine White Cell 0-2 /HPF (0-5)
[2024-06-10 08:55] VITALS: BMI 24.2
--- NOTE | 2024-06-10 09:06 | ED.GENMED ---
History of Present Illness
General
Chief Complaint: Abdominal Pain
Source: patient and spouse
Exam Limitations: none
Time Seen by Provider: 06/10/24 08:47
Nursing documentation reviewed up to this point in time: agreed with
History of Present Illness
History of Present Illness:
49-year-old female presents emergency room due to lower abdominal pain worse since March. Is been constant since last week. She saw her urologist last week and UA came back negative. She has a follow-up appoint with her in August. She is a
history cystitis.
Past History
Past History
ED Past Medical History: Other (Takes amitriptyline for interstitial cystitis.) and Other (Migraines with monthly injection of Emgality)
ED Past Surgical History: and Other (Breast augmentation, bladder ablation)
Social History
Tobacco: Non-smoker
Alcohol: None
Personal:
Living: with family
Employment: Not employed
Review of Systems
Review of Systems
Allergies reviewed?: Yes
All Other Systems: Not applicable
Constitutional: Reports no symptoms
EENT: Reports no symptoms
Respiratory: Reports no symptoms
Cardiac: Reports no symptoms
ABD/GI: Reports no symptoms
: Reports other (pelvic discomfort)
Musculoskeletal: Reports no symptoms
Skin: Reports no symptoms
Neurological: Reports no symptoms
Endocrine: Reports no symptoms
Hematologic/Lymphatic: Reports no symptoms
Psychiatric: Reports no symptoms
Phy Exam
Physical Exam
Physical Exam:
Physical Exam
General: no apparent distress, not acutely ill
Neck: supple. no meningeal signs. normal posterior pharynx
Heart: s1/s2 regular rate and rhythm, no murmur. equal radial
pulses.
HEENT: Pupils equal round reactive to light, EOMI
Lungs: no acute respiratory distress. clear bilaterally
Abdomen: normal bowel sounds. not tender. no CVAT
Neuro: alert and oriented. no focal neurological deficits
Skin: no rash
Psychiatric: well kept. interactive and cooperative
Extremities: no edema. good distal pulses
Course
Orders/Labs/Results
Orders:
Orders
06/10/24 08:20
Urinalysis Reflex To Culture Urgent
Date Specimen was Collected: 06/10/24
Time Specimen was Collected: 08:16
Urine Microscopic Reflex Cult Urgent
06/10/24 09:05
US Urinary Bladder Only Urgent
Reason For Exam: pelvic/bladder pain
Abnormal Lab Results
06/10/24
08:20
Ur Occult Blood Reflex 3+ A
(Negative)
Urine RBC 3-6 A /HPF
(0-2)
Urine Bacteria (Reflex) Few A
(Negative)
Urine Albumin (Reflex) 1+ A
(Neg - Trace)
Vital Signs
Initial and Last Documented VS:
Initial Vital Signs
Temp Pulse Resp BP Pulse Ox
98.5 F 109 16 120/79 98
06/10/24 08:11 06/10/24 08:11 06/10/24 08:11 06/10/24 08:11 06/10/24 08:11
Last Documented Vital Signs
Temp Pulse Resp BP Pulse Ox
98.5 F 73 16 97/69 100
06/10/24 08:11 06/10/24 09:48 06/10/24 09:48 06/10/24 11:00 06/10/24 11:00
MDM/Problems Addressed
Differential Diagnosis Includes:
Urinary tract infection, interstitial cystitis
MDM/Problems Addressed:
49-year-old female with pelvic discomfort, possibly due to interstitial cystitis. Ultrasound no acute findings. Stable for discharge and follow-up with urology.
Chronic conditions affecting care: Other (interstitial cystitis)
*Radiology
Radiology exam reviewed: radiology read reviewed (US bladder nad)
*Pulse Oximetry
Patient hypoxic: no
*Critical Care Note
Total Time (30-74mins, 75-104mins- exclusive of procedures): Not Applicable
Data Reviewed
Further Testing Considered But Not Given:
ct a/p not indicated
Patient Management
Social determinants of health affecting care: Living situation and Strong social support
Escalation/DeEscalation of care consider admission/obs:
admit not indicated
ED Attending Note
-
Portions of this chart may have been created with voice recognition software.� Occasional wrong word or��sound alike� substitutions may have occurred due to the inherent limitations of voice recognition software.
Discharge Plan
Departure
Patient Disposition: Home (Routine Discharge)
Date of Disposition: 06/10/24
Time of Disposition: 12:49
Patient with high blood pressure during this ER visit?: No
Condition: Good
Discharge Problem:
Pelvic pain
Instructions: Pelvic pain - ED discharge instructions, Bladder pain syndrome (interstitial cystitis) - ED discharge instructions
Prescriptions:
New
gabapentin 100 mg capsule
100 mg PO TID PRN (Reason: pain) Qty: 30 0RF
No Action
hydroxyzine HCl 50 mg Tablet
50 mg PO BID PRN (Reason: cystitis)
amitriptyline 10 mg Tablet
10 mg PO DAILY
galcanezumab-gnlm 120 mg/mL Pen Injector
120 mg SC QMONTH
Nurtec ODT 75 mg Tablet,Disintegrating
75 mg PO ONCE PRN (Reason: headache)
dicyclomine 20 mg tablet
20 mg PO TID PRN (Reason: abdominal pain) Qty: 12 0RF
Referrals:
Celina Dowling, [Active] - Call in 1-3 days for appt
David Gordon MD [Family Provider] -
Interventions
Interventions:
*Risk Screen - Suicide Last Done: 06/10/24 08:11
*General Assessment Last Done: 06/10/24 08:55
*Neglect/Abuse Screening Last Done: 06/10/24 08:11
*ED- Fall Risk Assessment Last Done: 06/10/24 08:55
*ED COVID-19 Vaccine History Last Done: 06/10/24 08:55
Discharge Date and Time
Print Language: SAMMARINESE
[2024-06-10 09:46] VITALS: BP 105/73
[2024-06-10 09:48] VITALS: BP 105/75
[2024-06-10 10:00] VITALS: BP 108/80
[2024-06-10 11:00] VITALS: BP 97/69
== END 2024-06-10 13:00 | disposition home or self-care (01) ==
LOC: EMR 08:04
PROVIDERS: EMERGENCY PHYSICIAN Emergency Medicine; FAMILY PHYSICIAN Internal Medicine; REFERRING PHYSICIAN Urology
DX: R10.2 Pelvic and perineal pain (principal); N30.10 Interstitial cystitis (chronic) without hematuria
CPT/HCPCS: 99284; 76857; 81003; 81015

== ENCOUNTER 2024-07-19 03:54 | Emergency (ER) | payer OTHER, SELFPAY ==
[2024-07-19 03:55] VITALS: BP 138/88
[2024-07-19 04:02] VITALS: BMI 28.8
[2024-07-19 04:13] VITALS: BP 114/83
[2024-07-19] MEDS: NSS 1000 IV (04:19)
[2024-07-19] MEDS: ZOFRAN 4 MG IV (04:26)
[2024-07-19 04:37] LABS: % Basophils 0.3 % (0-2); % Immature Granulocytes 0.1 % (0-0.5); % Lymphocytes 29.6 % (20.5-51.1); % Monocytes 5.1 % (1.7-9.3); % Neutrophils 60.9 % (42.2-75.2); Absolute Eosinophils 0.3 10^3/uL (0-0.7); Absolute Lymphocytes 2.1 10^3/uL (1.2-3.4); Absolute Monocytes 0.4 10^3/uL (0.1-0.6); Absolute Neutrophils 4.3 10^3/uL (1.4-6.5); Hematocrit 37.5 % (37.0-47.0); Hemoglobin 13.5 g/dL (12.0-16.0); Mean Corpuscular Hgb 30.8 pg (27.0-31.0); Mean Corpuscular Volume 85.4 fL (81.0-99.0); Mean Platelet Volume 9.2 fL (7.4-10.4); Nucleated Red Blood Cells % 0 %; Platelet Count 245 10^3/uL (130-400); Red Blood Cell Count 4.39 10^6/uL (4.20-5.40); Red Cell Dist. Width 12.3 % (11.5-14.5); White Blood Cell Count 7.1 10^3/uL (4.8-10.8)
--- NOTE | 2024-07-19 04:47 | ED.GENMED ---
History of Present Illness
General
Chief Complaint: Abdominal Symptoms
Source: patient
Exam Limitations: none
Time Seen by Provider: 07/19/24 04:47
Nursing documentation reviewed up to this point in time: agreed with
History of Present Illness
History of Present Illness:
Note:
CHIEF COMPLAINT(S)
- Nausea, vomiting, and diarrhea.
HISTORY OF PRESENT ILLNESS
The patient is a 49-year-old female with pmh of IBS, migraines, interstitial cystitis who presents with nausea, vomiting, and diarrhea. She describes the onset of her symptoms as sudden, beginning with burping that she described as smelling like
sulfur, followed a few hours later by diarrhea and vomiting. This episode mirrors a similar event that occurred last year in January. The patient reports abdominal pain that initially affected her entire stomach area, particularly around the time
of bowel movements. This pain has improved after using the bathroom. She does not report any recent antibiotic use, fever, or significant abdominal pain at the time of the examination. The patient previously underwent stool testing which reportedly
returned normal results, and she was prescribed medication for symptoms of nausea and diarrhea. She recalls being diagnosed with irritable bowel syndrome after discarding other potential diagnoses. She denies rectal bleeding, dark tarry stools,
lightheadedness, dizziness, chest pain, shortness of breath. is concerned about potential H.pylori infection as he is currently infected and had similar symptoms.
PHYSICAL EXAM
General: Patient is well appearing and in no acute distress; non-toxic
Skin: Warm and dry, no rashes or lesions
Head: Normocephalic, atraumatic
Eyes: Sclera non-icteric. EOMs intact.
Cardiac: Regular rate and rhythm, no murmurs
Pulm: Normal respiratory effort, no wheezes, rales, or rhonchi
Abdomen: No abdominal tenderness to palpation, normoactive bowel sounds
Neuro: CN II-XII intact, no focal neurologic deficits.
Psychiatric: Appropriate mood and affect.
PROBLEM LIST
Acute Problems:
- Nausea and vomiting
- Diarrhea
Chronic Problems:
- Irritable Bowel Syndrome
PLAN
- Check blood work to assess for electrolyte imbalances due to vomiting and diarrhea.
- Provide rehydration and symptom treatment.
- Collect stool samples for further testing, results anticipated in 1 to several days.
- Provide contact information for a support dba for further evaluation, particularly regarding the possibility of Helicobacter pylori infection, which requires further testing outside of the emergency room resources.
- Encourage follow-up with GI, especially if symptoms persist or escalate.
DIFFERENTIAL DIAGNOSIS
The Differential Diagnosis includes, in no particular order and is not limited to:
- Gastroenteritis (viral or bacterial)
- Food poisoning
- Irritable Bowel Syndrome exacerbation
- Helicobacter pylori infection
- Peptic ulcer disease
- Cholecystitis
- Pancreatitis
- Inflammatory bowel disease
- Giardia infection
- Celiac disease
DISPOSITION/MDM:
The patient is a 49-year-old female with pmh of IBS, migraines, interstitial cystitis who presents with nausea, vomiting, and diarrhea. She describes the onset of her symptoms as sudden, beginning with burping that she described as smelling like
sulfur, followed a few hours later by diarrhea and vomiting. This episode mirrors a similar event that occurred last year in January. Currently, she is abdominal pain free. On PE, she is well appearing, in no acute distress, her abdomen is soft and
non-tender. No indication for imaging at this time. She is afebrile. CBC and CMP unremarkable. Pt was given IV fluids and zofran. For her belching and epigastric discomfort she was given pepcid and protonix. Suspect acute gastroenteritis. Patient is
positive for h pylori and pt is concerned she could have this. Pt has been trying to get in to see GI. Did sent message to GI front desk attendant for further workup up for sooner outpatient follow up. Pt stable for discharge.
Past History
Past History
ED Past Medical History: Other (Takes amitriptyline for interstitial cystitis.) and Other (Migraines with monthly injection of Emgality)
ED Past Surgical History: and Other (Breast augmentation, bladder ablation)
Social History
Tobacco: Non-smoker
Alcohol: None
Personal:
Living: with family
Employment: Not employed
Review of Systems
Review of Systems
All Other Systems: ROS reviewed and negative except as documented in HPI and ROS
Phy Exam
Physical Exam
Physical Exam:
see hpi
Course
Orders/Labs/Results
Orders:
Orders
07/19/24 04:10
IV Insert/Care/Rem.- Treatment PRN
07/19/24 04:11
Test Result ONCE
07/19/24 04:17
Complete Blood Count/With Diff Urgent
Comprehensive Metabolic Panel Urgent
HCG, Serum Qualitative Screen Urgent
Comment: Notify provider if positive test present
Lipase Urgent
07/19/24 04:18
H. pylori Antigen, Fecal [S] Urgent
C difficile Antigen & Toxins Urgent
[facility] Source: Feces/Stool
Specimen Description:
Date Specimen was Collected: 07/19/24
Time Specimen was Collected: 04:15
Norovirus by PCR Urgent
[facility] Source: ST
Specimen Description:
Date Specimen was Collected: 07/19/24
Time Specimen was Collected: 04:15
Stool Culture Urgent
[facility] Source: Feces/Stool
Specimen Description:
Date Specimen was Collected: 07/19/24
Time Specimen was Collected: 04:15
0.9% Sodium Chloride 1000 ml [Nss] 1,000 ml IV BOLUS
07/19/24 04:24
Ondansetron Injectable [Zofran] 4 mg IV NOW STA
07/19/24 05:05
Famotidine [Pepcid] 20 mg IV NOW STA
Pantoprazole [Protonix IV] 40 mg IV NOW STA
07/19/24 05:06
Electrocardiogram (*1) Urgent
Reason for Study: Abdominal Pain
07/19/24 05:08
Add On- LAB Urgent
Tests Added?: H PYLORI STOOL ANTIGEN
07/19/24 05:44
Prochlorperazine [Compazine] 10 mg IV NOW STA
07/19/24 05:56
Add On - Microbiology Urgent
Tests Added?: norovirus pcr stool
Abnormal Lab Results
07/19/24
04:17
BUN 26 H mg/dl
(7-17)
07/19/24 04:17
07/19/24 04:17
Vital Signs
Initial and Last Documented VS:
Initial Vital Signs
Temp Pulse Resp BP Pulse Ox
97.9 F 88 20 138/88 100
07/19/24 03:55 07/19/24 03:55 07/19/24 03:55 07/19/24 03:55 07/19/24 03:55
Last Documented Vital Signs
Temp Pulse Resp BP Pulse Ox
97.9 F 78 18 103/70 98
07/19/24 03:55 07/19/24 06:11 07/19/24 04:32 07/19/24 06:11 07/19/24 06:11
MDM/Problems Addressed
Differential Diagnosis Includes:
see hpi
Chronic conditions affecting care:
see hpi
Acute Exacerbation and/or Progression of Chronic Illness:
see hpi
*Pulse Oximetry
Patient hypoxic: no
*Critical Care Note
Total Time (30-74mins, 75-104mins- exclusive of procedures): Not Applicable
Data Reviewed
Review of Other/Old Records Reveals: Records (reviewed previous ER physician documentation for similar symptoms)
Source: patient and records
ED Attending Note
-
Portions of this chart may have been created with voice recognition software.� Occasional wrong word or��sound alike� substitutions may have occurred due to the inherent limitations of voice recognition software.
Discharge Plan
Departure
Patient Disposition: Home (Routine Discharge)
Date of Disposition: 07/19/24
Time of Disposition: 05:51
Patient with high blood pressure during this ER visit?: Yes
Condition: Good
Discharge Problem:
Acute gastroenteritis
Instructions: Nausea and Vomiting, Adult (DC), Stool Test
Prescriptions:
New
ondansetron 4 mg tablet,disintegrating
4 mg PO Q4H PRN (Reason: nausea) Qty: 8 0RF
No Action
amitriptyline 10 mg Tablet
10 mg PO DAILY
galcanezumab-gnlm 120 mg/mL Pen Injector
120 mg SC QMONTH
Nurtec ODT 75 mg Tablet,Disintegrating
75 mg PO ONCE PRN (Reason: headache)
dicyclomine 20 mg tablet
20 mg PO TID PRN (Reason: abdominal pain) Qty: 12 0RF
Referrals:
Frank Negrete MD [Active, Gastroenterology] - Call in 1-3 days for appt
David Gordon MD [Family Provider, Internal Medicine]
Activity Restrictions/Additional Instructions:
Your information was sent to GI front desk attendant. Please call Dr. Negrete's office for gastroenterology evaluation considering this is your third episode of similar symptoms.
PLEASE RETURN EMERGENCY DEPARTMENT SHOULD YOU DEVELOP RECTAL BLEEDING, DARK BLACK TARRY STOOLS, INTRACTABLE NAUSEA OR VOMITING, PERSISTENT ABDOMINAL PAIN, FEVERS OR CHILLS, CHEST PAIN, SHORTNESS OF BREATH, LIGHTHEADEDNESS, DIZZINESS, ANY OTHER SIGNS
OR SYMPTOMS WORRISOME TO
Interventions
Interventions:
*Risk Screen - Suicide Last Done: 07/19/24 03:55
*General Assessment Last Done: 07/19/24 04:03
*Neglect/Abuse Screening Last Done: 07/19/24 03:55
*ED- Fall Risk Assessment Last Done: 07/19/24 04:03
*ED COVID-19 Vaccine History Last Done: 07/19/24 04:03
*Nursing Disposition Last Done: 07/19/24 06:43
PD-Lpasix-Vcqvlhcnzk Assessment Last Done: 07/19/24 04:36
Discharge Date and Time
Discharge Date/Time: 07/19/24 06:44
Print Language: CHINESE
[2024-07-19 04:52] LABS: HCG, Serum Qualitative Screen Negative
[2024-07-19 05:00] VITALS: BP 108/78
[2024-07-19 05:00] LABS: ALT (SGPT) 17 U/L (0-35); AST (SGOT) 22 U/L (14-36); Albumin 4.9 g/dl (3.5-5.0); Alkaline Phosphatase 56 U/L (38-126); Blood Urea Nitrogen 26 mg/dl (7-17); Calcium 9.8 mg/dl (8.4-10.2); Carbon Dioxide 27 mmol/L (22-30); Chloride 106 mmol/L (98-107); Estimated Creatinine Clearance 98 ml/min; Glucose 91 mg/dl (70-99); Lipase 149 U/L (23-300); Potassium 3.8 mmol/L (3.5-5.1); Sodium 142 mmol/L (135-145); Total Bilirubin 0.5 mg/dl (0.2-1.3); Total Protein 8.1 g/dl (6.3-8.2); eGFR > 60.00
[2024-07-19] MEDS: PEPCID 20 MG IV (05:13)
[2024-07-19] MEDS: PROTONIX IV 40 MG IV (05:19)
[2024-07-19] MEDS: COMPAZINE 10 MG IV (05:49)
[2024-07-19 06:11] VITALS: BP 103/70
[2024-07-20 23:29] LABS: H. pylori Antigen, Fecal Negative (Negative)
== END 2024-07-19 06:44 | disposition home or self-care (01) ==
LOC: EMR 03:54
PROVIDERS: EMERGENCY PHYSICIAN Emergency Medicine; FAMILY PHYSICIAN Internal Medicine
DX: K52.9 Noninfective gastroenteritis and colitis, unspecified (principal)
CPT/HCPCS: 99283; 96374; 96375; 96361; 80053; 83690; 84703; 85025; 87045; 87046; 87324; 87338; 87427; 87449; 87798; 93005

== ENCOUNTER 2024-09-07 13:51 | Outpatient (RCR) | payer OTHER, SELFPAY ==
[2024-08-16 14:36] VITALS: BP 110/69
[2024-08-16] MEDS: VENOFER 110 MG IV (14:53)
[2024-08-16] MEDS: TYLENOL 650 MG PO (14:56)
[2024-08-16 16:31] VITALS: BP 106/69
[2024-08-25 14:01] VITALS: BP 97/69
[2024-08-25] MEDS: BENADRYL 25 MG PO (14:05)
[2024-08-25] MEDS: TYLENOL 650 MG PO (14:05)
[2024-08-25] MEDS: VENOFER 110 MG IV (14:07)
[2024-08-25 15:20] VITALS: BP 102/59
[2024-09-07 14:00] VITALS: BP 97/66
[2024-09-07] MEDS: BENADRYL 25 MG PO (14:14)
[2024-09-07] MEDS: TYLENOL 650 MG PO (14:15)
[2024-09-07] MEDS: VENOFER 110 MG IV (14:15)
== END 2024-09-08 23:59 | disposition home or self-care (01) ==
LOC: OID 13:51
PROVIDERS: ATTENDING PHYSICIAN Psychiatry & Neurology Neurology; FAMILY PHYSICIAN Internal Medicine
DX: G44.52 New daily persistent headache (NDPH) (principal); G44.221 Chronic tension-type headache, intractable; G47.9 Sleep disorder, unspecified; R79.0 Abnormal level of blood mineral
CPT/HCPCS: 96365; J1756

== ENCOUNTER → 2024-09-13 15:38 | Outpatient (REF) | payer OTHER, SELFPAY ==
[2024-09-13 16:51] LABS: Hematocrit 38.1 % (37.0-47.0); Hemoglobin 13.2 g/dL (12.0-16.0); Mean Corp Hgb Conc. 34.6 g/dL (33.0-37.0); Mean Corpuscular Volume 86.8 fL (81.0-99.0); Platelet Count 259 10^3/uL (130-400); Red Cell Dist. Width 12.6 % (11.5-14.5)
[2024-09-13 17:12] LABS: Blood Urea Nitrogen 20 mg/dl (7-17); Calcium 9.7 mg/dl (8.4-10.2); Carbon Dioxide 26 mmol/L (22-30); Chloride 104 mmol/L (98-107); Glucose 77 mg/dl (70-99); Potassium 4.1 mmol/L (3.5-5.1); Sodium 138 mmol/L (135-145); eGFR > 60.00
== END ==
LOC: REG 15:38
PROVIDERS: ATTENDING PHYSICIAN Nurse Practitioner; FAMILY PHYSICIAN Internal Medicine
DX: N30.10 Interstitial cystitis (chronic) without hematuria (principal)
CPT/HCPCS: 36415; 80048; 85027

== ENCOUNTER 2024-09-14 13:43 | Outpatient (RCR) | payer OTHER, SELFPAY ==
[2024-09-14 13:51] VITALS: BP 101/69
[2024-09-14] MEDS: VENOFER 110 MG IV (14:02)
[2024-09-14] MEDS: TYLENOL 650 MG PO (14:03)
[2024-09-14] MEDS: BENADRYL 25 MG PO (14:03)
[2024-09-14 15:12] VITALS: BP 104/70
== END 2024-09-15 15:53 | disposition home or self-care (01) ==
LOC: OID 13:43
PROVIDERS: ATTENDING PHYSICIAN Psychiatry & Neurology Neurology; FAMILY PHYSICIAN Internal Medicine
DX: G44.52 New daily persistent headache (NDPH) (principal); R79.0 Abnormal level of blood mineral; G44.221 Chronic tension-type headache, intractable; G47.9 Sleep disorder, unspecified
CPT/HCPCS: 96365; J1756

== ENCOUNTER → 2024-09-22 07:00 | Outpatient (REF) | payer OTHER, SELFPAY | LOC: CLAB 07:00 | PROVIDERS: ATTENDING PHYSICIAN Urology | DX: N30.10 Interstitial cystitis (chronic) without hematuria (principal); M62.89 Other specified disorders of muscle | CPT/HCPCS: 88305 ==

== ENCOUNTER 2024-10-12 13:55 | Outpatient (RCR) | payer OTHER, SELFPAY ==
[2024-10-12 14:00] VITALS: BP 108/67
[2024-10-12] MEDS: BENADRYL 25 MG PO (14:14)
[2024-10-12] MEDS: TYLENOL 650 MG PO (14:15)
[2024-10-12] MEDS: VENOFER 110 MG IV (14:15)
[2024-10-12 15:48] VITALS: BP 98/63
== END 2024-10-13 10:24 | disposition home or self-care (01) ==
LOC: OID 13:55
PROVIDERS: ATTENDING PHYSICIAN Psychiatry & Neurology Neurology; FAMILY PHYSICIAN Internal Medicine
DX: G44.52 New daily persistent headache (NDPH) (principal); R79.0 Abnormal level of blood mineral; G44.221 Chronic tension-type headache, intractable; G47.9 Sleep disorder, unspecified
CPT/HCPCS: 96365; J1756